=== PATIENT | female | born 1970 | race Caucasian/White ===

== ENCOUNTER 2019-05-11 20:53 | Emergency (ER) | payer OTHER ==
[2019-05-11] MEDS: morphine 4 MG/ML VIAL IV (23:31)
[2019-05-11 23:44] LABS: ADD MAN DIFF? NO
[2019-05-11 23:45] LABS: BASOPHILS % 0.3 % (0.0-2.0); EOSINOPHILS # 0.1 10^3/ul (0.0-0.5); EOSINOPHILS % 1.5 % (0.0-7.0); HEMOGLOBIN 11.6 g/dl (12.0-16.0); LYMPHOCYTES # 2.1 10^3/ul (0.8-2.9); LYMPHOCYTES % 24.9 % (15.0-51.0); MEAN CORPUSCULAR HGB CONC 31.4 g/dl (32.0-37.0); MEAN PLATELET VOLUME 9.8 fl (7.4-10.4); MONOCYTE # 0.6 10^3/ul (0.3-0.9); MONOCYTES % 6.5 % (0.0-11.0); NEUTROPHIL # 5.7 10^3/ul (1.6-7.5); NEUTROPHILS % 66.5 % (39.0-77.0); PLATELET COUNT 347 10^3/UL (140-415); RED BLOOD COUNT 4.46 10^6/ul (4.20-5.40)
[2019-05-11 23:45] LABS: WHITE BLOOD COUNT 8.6 10^3/ul (4.8-10.8)
[2019-05-12 00:04] LABS: PROTIME 11.2 Sec (11.9-14.9); PT RATIO 0.9
[2019-05-12 00:05] LABS: PARTIAL THROMBOPLASTIN TIME 24.1 Sec (23.0-35.0)
[2019-05-12 00:16] LABS: ALANINE AMINOTRANSFERASE 24 IU/L (13-69); ALBUMIN 4.5 g/dl (3.3-4.9); ALKALINE PHOSPHATASE 65 IU/L (42-121); ANION GAP 9 (5-13); ASPARTATE AMINO TRANSFERASE 26 IU/L (15-46); BILIRUBIN,INDIRECT 0.3 mg/dl (0-1.1); BILIRUBIN,TOTAL 0.3 mg/dl (0.2-1.3); BLOOD UREA NITROGEN 10 mg/dl (7-20); CALCIUM 9.7 mg/dl (8.4-10.2); CARBON DIOXIDE 26 mmol/L (21-31); CHLORIDE 105 mmol/L (97-110); CREATININE 0.55 mg/dl (0.44-1.00); Estimated GFR > 60 mL/min (>60); GLUCOSE 92 mg/dl (70-220); POTASSIUM 3.7 mmol/L (3.5-5.1); SODIUM 140 mmol/L (135-144); TOTAL PROTEIN 7.5 g/dl (6.1-8.1)
[2019-05-12] MEDS ORDERED: SOD CHLORIDE 0.9% 100 ML (00:48)
[2019-05-12] MEDS ORDERED: IODIXANOL LOCM 100 ML BTL (00:48)
[2019-05-12] MEDS ORDERED: IODIXANOL LOCM 50 ML BTL (00:49)
== END 2019-05-12 02:15 | disposition home or self-care (01) ==
LOC: FTE 05-12 02:15
DX: S52.602A Unspecified fracture of lower end of left ulna, initial encounter for closed fracture (principal); V49.49XA Driver injured in collision with other motor vehicles in traffic accident, initial encounter
CPT/HCPCS: 29125; 36415; 70450; 71260; 72125; 73030; 73080-LT; 73090; 73110-LT; 73130-LT; 74177; 80053; 81025; 85025; 85610; 85730; 96374; 99285-25